=== PATIENT | male | born 1970 | race African-American/Black ===

== ENCOUNTER 2018-12-15 09:59 | Emergency (ER) | payer OTHER ==
[~2018-12-15] VITALS: Ht 172.7 cm; Wt 83.9 kg
[2018-12-15 10:03] VITALS: BP 119/73
--- NOTE | 2018-12-15 10:15 | NUR ---
ED Nurse Note: pt. aaox4. ambualtory. came in due to the lacerations noted on hs face. per pt., was weight lifting this morning when metal plate fell down on his face. denies n/v. denies loc
--- NOTE | 2018-12-15 10:16 | NUR ---
ED Nurse Note: small bump noted on the froehead. ice provided on the forehead
--- NOTE | 2018-12-15 10:21 | Emergency Room Report ---
History of Present Illness General Chief Complaint: Laceration Source: Patient Present Illness HPI Patient presents with complaints of laceration to the forehead and facial area that just occurred patient reports that he was working out and doing a tricep workout with a pulldown type apparatus when one of the parts of the machine fell onto the facial area causing a laceration Denies any lapse of consciousness denies any chest pain denies any back or flank pain denies any focal weakness Allergies: Coded Allergies: No Known Allergies (Unverified , 12/15/18) Patient History Past Medical History: see triage record Pertinent Family History: none Reviewed Nursing Documentation: PMH: Agreed; PSxH: Agreed Nursing Documentation-PMH Past Medical History: No Stated History Review of Systems All Other Systems: negative except mentioned in HPI Physical Exam Vital Signs Date Time Temp Pulse Resp B/P (MAP) Pulse Ox O2 Delivery O2 Flow Rate FiO2 12/15/18 10:03 98.2 66 18 119/73 98 Room Air Sp02 EP Interpretation: reviewed, normal General Appearance: well appearing, no apparent distress Head: normocephalic, other - Linear approximately 1-1/2 similar laceration right forehead, another linear laceration appears to be more deep just lateral to the nasal labial region approximately 1 cm Eyes: bilateral eye PERRL, bilateral eye EOMI ENT: hearing grossly normal, normal pharynx, TMs + canals normal, uvula midline Neck: full range of motion, supple, no meningismus, no bony tend Respiratory: lungs clear, normal breath sounds, no rhonchi, no respiratory distress, no retraction, no accessory muscle use Cardiovascular #1: normal peripheral pulses, regular rate, rhythm, no edema, no gallop, no JVD, no murmur Gastrointestinal: normal bowel sounds, non tender, soft, no mass, no organomegaly, non-distended, no guarding, no hernia, no pulsatile mass, no rebound Genitourinary: no CVA tenderness Musculoskeletal: normal inspection Neurologic: oriented x3, responsive, 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, motor strength/ tone normal, sensory intact Psychiatric: mood/affect normal Skin: other - As above Lymphatic: normal inspection, no adenopathy Procedures Laceration/Wound Repair Laceration/Wound Repair : Consent: Verbal Wound Location: head, face Wound's Depth, Shape: into muscle Wound Length (cm): 2 Wound Explored: clean Irrigated w/ Saline (ccs): 200 Betadine Prep?: Yes Anesthesia: 1% Lidocaine Volume Anesthetic (ccs): 3 Wound Debrided: minimal Wound Repaired With: sutures, Dermabond Suture Size/Type: 6:0 Number of Sutures: 5 Layer Closure?: No Patient Tolerated: Well Complications: None Progress 2 separate areas of laceration right mid forehead approximately 1.5 cm This area was closed using Dermabond closure with appropriate approximation The second laceration approximately 1 cm just above the right upper lip, was closed using 5, 6. 0 monofilament sutures with appropriate approximation after local sedation and patient are the procedure well as well Medical Decision Making Diagnostic Impression: Primary Impression: Facial laceration ER Course Given the patient's history and presentation Closure was performed With the notes stated above patient tolerated the procedure well At this time is stable for close outpatient follow-up Last Vital Signs Date Time Temp Pulse Resp B/P (MAP) Pulse Ox O2 Delivery O2 Flow Rate FiO2 12/15/18 10:03 98.2 66 18 119/73 98 Room Air Status: improved Disposition: HOME, SELF-CARE Condition: Improved Scripts No Active Prescriptions or Reported Meds Additional Instructions: Patient is provided with the discharge instructions notified to follow up with primary doctor in the next 2-3 days otherwise return to the er with any worsening symptoms. Please note that this report is being documented using [employer] technology. This can lead to erroneous entry secondary to incorrect interpretation by the dictating instrument. Lizzy Raza DO Dec 15, 2018 10:21
[2018-12-15] MEDS ORDERED: Tetanus/Diptheria/Pertussis Vaccine 0.5ml Syr IM ONE (10:30)
[2018-12-15] MEDS ORDERED: Lidocaine 1% 10mg/ml/Epi 0.005mg/ml 30ml vial INJ ONE (10:30)
--- NOTE | 2018-12-15 10:39 | NUR ---
ED Nurse Note: pt.'s lacerations were kept cleaned and dry
--- NOTE | 2018-12-15 10:55 | NUR ---
ED Nurse Note: Dr. Raza at the [facility] doing sutures
[2018-12-15] MEDS ORDERED: Bacitracin Oint UD TOPIC ONE ×2 (11:00)
[2018-12-15 11:05] VITALS: BP 124/75
--- NOTE | 2018-12-15 11:07 | NUR ---
ED Nurse Note: PT. AAOX4. AMBULATORY. LEFT WITH STEADY GAIT. PT. EDUCATION DONE REGARDING D/C PAPERS AND PRESCRIPTIONS. VSS. ID ARMBAND REMOVED. PT. LEFT WITH ALL HIS BELONGINGS.
== END 2018-12-15 11:07 | disposition home or self-care (01) ==
LOC: EMR 10:10
DX: S01.81XA Laceration without foreign body of other part of head, initial encounter (principal); W22.8XXA Striking against or struck by other objects, initial encounter; Y93.B1 Activity, exercise machines primarily for muscle strengthening; Y92.89 Other specified places as the place of occurrence of the external cause; Z23 Encounter for immunization
CPT/HCPCS: 12011; 90471; 90715; 99283; Z7502

== ENCOUNTER 2018-12-22 08:08 | Emergency (ER) | payer OTHER ==
[~2018-12-22] VITALS: Ht 172.7 cm; Wt 83.9 kg
--- NOTE | 2018-12-22 08:18 | NUR ---
ED Nurse Note: Pt was instructed to comeback to the ER for suture removal, placed on 12/15/[address] Raza. Skin intact, dry, no redness or swelling. no complaint of pain tavo. AOx4, VSS tavo. Will cont to monitor.
[2018-12-22 08:30] VITALS: BP 122/81
[2018-12-22 08:31] VITALS: BP 122/81
--- NOTE | 2018-12-22 08:31 | NUR ---
ER DISCHARGE NOTE: Patient is cleared to be discharged per ERMD, pt is aox4, on room air, with stable vital signs. pt was given dc instructions, pt was able to verbalize understanding, pt id band removed. pt is able to ambulate with steady gait. pt took all belongings.
--- NOTE | 2018-12-22 08:32 | Emergency Room Report ---
History of Present Illness General Chief Complaint: Wound Recheck/Suture Removal Source: Patient Present Illness HPI Patient is a 48-year-old male presented for suture removal. Patient had sutures placed 7 days ago. He denies any complaints. Patient had not been having a fever or increased headache. He denies any severe pain. Allergies: Coded Allergies: No Known Allergies (Unverified , 12/15/18) Patient History Past Medical History: see triage record Reviewed Nursing Documentation: PMH: Agreed; PSxH: Agreed Nursing Documentation-PMH Past Medical History: No Stated History Review of Systems All Other Systems: negative except mentioned in HPI Physical Exam Vital Signs Date Time Temp Pulse Resp B/P (MAP) Pulse Ox O2 Delivery O2 Flow Rate FiO2 12/22/18 08:10 97.9 67 18 121/77 98 Room Air General Appearance: well appearing, no apparent distress, alert, GCS 15 Head: normocephalic, atraumatic ENT: hearing grossly normal, normal voice Neck: full range of motion, supple Respiratory: no respiratory distress, speaking full sentences Musculoskeletal: no calf tenderness Neurologic: normal inspection, alert, oriented x3, normal gait Psychiatric: mood/affect normal Skin: no rash, other - healed laceration Medical Decision Making Diagnostic Impression: Primary Impression: Encounter for removal of sutures ER Course Patient presented for wound check. Differential diagnosis included was not limited to infected wound, nonhealed wound, neuroma, healed wound. Patient's wound appears to be well-healed. Sutures were removed. Patient was advised further wound care. Patient is advised to return if he had any new concerns. Last Vital Signs Date Time Temp Pulse Resp B/P (MAP) Pulse Ox O2 Delivery O2 Flow Rate FiO2 12/22/18 08:10 97.9 67 18 121/77 98 Room Air Status: improved Disposition: HOME, SELF-CARE Condition: Stable Scripts No Active Prescriptions or Reported Meds Patient Instructions: Suture Removal, Care After Cayetano Cary MD Dec 22, 2018 08:32
== END 2018-12-22 09:00 | disposition home or self-care (01) ==
LOC: EMR 08:40
DX: Z48.02 Encounter for removal of sutures (principal)
CPT/HCPCS: 99281